=== PATIENT | male | born 1985 | race Caucasian/White ===

== ENCOUNTER 2016-10-20 18:26 | Emergency (ER) | payer SELFPAY ==
[~2016-10-20] VITALS: Ht 182.9 cm; Wt 70.0 kg
[2016-10-20 18:54] LABS: HEMATOCRIT 44.4 % (39.2-51.8); HEMOGLOBIN 14.9 g/dL (13.7-18.0); WHITE BLOOD COUNT 9.4 x10^3/uL (3.4-10)
[2016-10-20] MEDS ORDERED: SODIUM CHLORIDE 0.9% 1,000ML IVBOLUS ONE (19:00)
[2016-10-20] MEDS ORDERED: PLEASE ENTER ALLERGIES MC SCH ×2 (19:00)
[2016-10-20] MEDS ORDERED: PLEASE ENTER HEIGHT AND WEIGHT MC SCH (19:00)
[2016-10-20 19:07] LABS: BLOOD UREA NITROGEN 17 mg/dL (7-18)
[2016-10-20 20:08] VITALS: BP 128/70
== END 2016-10-20 20:10 | disposition home or self-care (01) ==
LOC: ED 20:04
DX: R55 Syncope and collapse (principal)
CPT/HCPCS: 36415; 80048; 82040; 85025; 93005; 96360; 99285; J7030